=== PATIENT | female | born 1955 | race Caucasian/White ===

== ENCOUNTER → 2024-06-22 12:43 | Outpatient (REF) | payer OTHER, SELFPAY | LOC: MRI 12:43 | PROVIDERS: ATTENDING PHYSICIAN Nurse Practitioner Adult Health | DX: G32.81 Cerebellar ataxia in diseases classified elsewhere (principal); M54.16 Radiculopathy, lumbar region | CPT/HCPCS: 70551; 72158; A9575 ==

== ENCOUNTER 2024-08-27 11:32 | Emergency (ER) | payer OTHER, SELFPAY ==
[2024-08-27 11:37] VITALS: BP 171/108; BMI 23.0
[2024-08-27 12:00] VITALS: BP 147/62
[2024-08-27 13:00] VITALS: BP 137/77
[2024-08-27] MEDS: TORADOL 15 MG IM (13:05)
[2024-08-27 13:47] VITALS: BP 150/74
[2024-08-27 14:00] VITALS: BP 127/58
--- NOTE | 2024-08-27 14:53 | ED.GENMED ---
History of Present Illness
General
Chief Complaint: Musculo-Skeletal Complaint
Time Seen by Provider: 08/27/24 11:46
History of Present Illness
History of Present Illness:
69-year-old female with history of ambulatory issues presenting from her nursing facility after a fall. Patient reports a few days ago she fell when transferring from her bed to her wheelchair, landing on her buttock. Denies head strike or loss of
consciousness. Initially injured her right ankle, had x-ray at the facility that was negative. Since the fall, has had worsening left hip pain and has been unable to stand up or bear weight on her hip, requires full assistance with transfers.
Denies numbness or tingling to her extremity. Denies chest pain, difficulty breathing, or additional acute medical complaints.
Past History
Past History
ED Past Medical History: Cancer (Breast cancer)
ED Past Surgical History: None
Social History
Tobacco: Smoker
Personal: Single
Living: alone
Phy Exam
Physical Exam
Physical Exam:
General: Well-appearing, no clinical signs of dehydration, nontoxic and in no acute distress
HEENT: protecting airway
Head: no signs of trauma
Neck: appears supple
CV: Normal heart rate, regular rhythm
Resp: No accessory muscle use, no increased work of breathing, lungs clear to auscultation bilaterally
Abd: Soft and non-distended, no tenderness to palpation
Extremities: No deformities, no swelling. Mild tenderness to the left hip and pelvic region. Strength is 4/5 to the lower extremity, however reported to be chronic. Distal sensation and pulses
Neuro: alert, no focal neurologic deficit
: deferred
Rectal: deferred
Psych: Normal affect
Skin: Intact
Course
Orders/Labs/Results
Orders:
Orders
08/27/24 12:53
Ketorolac [Toradol] 15 mg IM NOW STA
Hip, Left 2-3 Views [CR Hip - LT w/wo Pel 2-3 Vw*] Urgent
Comment:
Reason For Exam: fall, can't bear weight
Include a pelvis x-ray?: Yes
08/27/24 14:12
CT Pelvis W/o Iv Contrast Urgent
Comment:
Reason For Exam: L-hip and pelvis pain
Vital Signs
Initial and Last Documented VS:
Initial Vital Signs
Temp Pulse Resp BP Pulse Ox
98.6 F 79 18 171/108 100
08/27/24 11:37 08/27/24 11:37 08/27/24 11:37 08/27/24 11:37 08/27/24 11:37
Last Documented Vital Signs
Temp Pulse Resp BP Pulse Ox
98.6 F 79 18 147/62 99
08/27/24 11:37 08/27/24 11:37 08/27/24 11:37 08/27/24 12:00 08/27/24 12:15
MDM/Problems Addressed
MDM/Problems Addressed:
69-year-old female presenting for left hip pain after a fall a few days ago. Vital signs are normal.
On exam patient is well-appearing, no acute distress or discomfort. No signs of head trauma, patient denies any head injury or loss of consciousness. No cervical tenderness or tenderness to the back. Regarding pain to the left hip, range of
motion is grossly intact, possible muscular versus tendinous injury, however patient notes that she has been having difficulty bearing weight. For this reason fracture is a consideration. Plan for x-ray imaging.
14:30 - X-ray without acute fracture or malalignment, however given inability bearing weight, will also obtain a CT pelvis to ensure no occult fracture
15:40 - CT without fracture or malalignment. At this time feel stable for discharge back to facility with continued PT treatment, supportive therapy and outpatient orthopedic follow-up. Advised using full assist with transfers until injury is
healing. Advised Tylenol or Motrin as needed for pain. Return precautions discussed and patient verbalized understanding
*Critical Care Note
Total Time (30-74mins, 75-104mins- exclusive of procedures): Not Applicable
ED Attending Note
-
Portions of this chart may have been created with voice recognition software.� Occasional wrong word or��sound alike� substitutions may have occurred due to the inherent limitations of voice recognition software.
Discharge Plan
Departure
Prescriptions:
No Action
anastrozole 1 MG tablet
PO DAILY
Patient Comments:
pt is unsure of exact dose
Referrals:
Francheska Clark NP [Family Provider] -
Interventions
Interventions:
*Risk Screen - Suicide Last Done: 08/27/24 11:37
*General Assessment Last Done: 08/27/24 11:37
*Neglect/Abuse Screening Last Done: 08/27/24 11:37
ED-Musculoskeletal Assessment Last Done: 08/27/24 11:45
Discharge Date and Time
Print Language: PERSIAN
== END 2024-08-27 16:35 | disposition home or self-care (01) ==
LOC: EMR 11:32
PROVIDERS: EMERGENCY PHYSICIAN Student in an Organized Health Care Education/Training Program; FAMILY PHYSICIAN Nurse Practitioner Adult Health
DX: S70.02XA Contusion of left hip, initial encounter (principal); W05.0XXA Fall from non-moving wheelchair, initial encounter; M25.552 Pain in left hip; F17.200 Nicotine dependence, unspecified, uncomplicated
CPT/HCPCS: 99284; 96372; 72192; 73502

== ENCOUNTER → 2024-10-27 11:55 | Outpatient (REF) | payer OTHER, SELFPAY | LOC: MRI 11:55 | PROVIDERS: ATTENDING PHYSICIAN Nurse Practitioner Adult Health | DX: M25.552 Pain in left hip (principal); R26.9 Unspecified abnormalities of gait and mobility | CPT/HCPCS: 72141; 73721 ==

== ENCOUNTER → 2025-07-19 12:23 | Outpatient (REF) | payer OTHER, SELFPAY | LOC: REG 12:23 | PROVIDERS: ATTENDING PHYSICIAN Neurological Surgery; FAMILY PHYSICIAN Nurse Practitioner Adult Health | DX: Z98.1 Arthrodesis status (principal) | CPT/HCPCS: 72050 ==